=== PATIENT | female | born 1935 | race Two or more races ===

== ENCOUNTER 2017-02-25 20:33 | Emergency (ER) | payer BC ==
[~2017-02-25] VITALS: Ht 152.4 cm; Wt 59.0 kg
[2017-02-26] MEDS ORDERED: LIDOCAINE HCL 1 % PF INJ 2ML AMP IJ ONE (00:30)
[2017-02-26] MEDS ORDERED: LIDOCAINE 1% HCL (LOCAL ANESTH.) INJ 20ML MDV IJ ONE (01:30)
[2017-02-26] MEDS ORDERED: BACITRACIN-POLYMYXIN B TOPICAL OINT UD TOP ONE (02:51)
[2017-02-26 02:54] VITALS: BP 147/66
[2017-02-26] MEDS ORDERED: BACITRACIN TOP OINT 1 UD PKG TOP ONE (03:00)
== END 2017-02-26 03:09 | disposition home or self-care (01) ==
LOC: EDBD 20:33 → ER 20:39
DX: S00.01XA Abrasion of scalp, initial encounter (principal); R51 Headache; E11.9 Type 2 diabetes mellitus without complications; I10 Essential (primary) hypertension; E78.5 Hyperlipidemia, unspecified; E07.9 Disorder of thyroid, unspecified; G44.309 Post-traumatic headache, unspecified, not intractable; W01.198A Fall on same level from slipping, tripping and stumbling with subsequent striking against other object, initial encounter; Y93.41 Activity, dancing; Y92.89 Other specified places as the place of occurrence of the external cause; Y99.8 Other external cause status
CPT/HCPCS: 70450; 99284; J2001